=== PATIENT | female | born 1985 | race African-American/Black ===

== ENCOUNTER 2018-09-17 19:48 | Emergency (ER) | payer MEDICAID, OTHER ==
[~2018-09-17] VITALS: Ht 172.7 cm; Wt 77.1 kg
[~2018-09-17 19:48] MED LIST: CIPRO500 MG PO; IBUPROFEN600 MG ORAL; NKM; PHENERGAN25 M1 ORAL; ZOFRAN4 MG ORAL
--- NOTE | 2018-09-17 20:28 | Emergency Room Report ---
History of Present Illness General Chief Complaint: Flu Like Symptoms Source: Patient Present Illness HPI Patient is a 32-year-old female presented after increased headache and nasal congestion. Patient reports having onset of symptoms was 3 days prior to arrival. Patient reports having irregular menses. She reports having generalized body aches as well as the nonproductive cough. She denies any vomiting. She had not been having any diarrhea. She denies any photophobia or neck stiffness.She denies prior medical problems. Allergies: Coded Allergies: No Known Allergies (Unverified , 10/29/14) Patient History Past Medical History: see triage record Last Menstrual Period: 08/21/18 Now: No : 4 Para: 1 Reviewed Nursing Documentation: PMH: Agreed; PSxH: Agreed Nursing Documentation-PMH Past Medical History: No Stated History Review of Systems All Other Systems: negative except mentioned in HPI Physical Exam Vital Signs Date Time Temp Pulse Resp B/P (MAP) Pulse Ox O2 Delivery O2 Flow Rate FiO2 09/17/18 20:12 97.9 92 16 140/95 98 Room Air General Appearance: well appearing, no apparent distress, alert, GCS 15 Head: normocephalic, atraumatic ENT: hearing grossly normal, normal voice, other - nasal congestion Neck: full range of motion, supple Respiratory: no respiratory distress, speaking full sentences Cardiovascular #1: normal peripheral pulses, regular rate, rhythm, no edema Gastrointestinal: normal inspection Musculoskeletal: normal inspection, back normal, digits/nails normal, no calf tenderness Neurologic: normal inspection, alert, oriented x3, responsive, hand hardener III-XII nml as tested, normal gait Psychiatric: mood/affect normal Skin: normal inspection, no rash Medical Decision Making Diagnostic Impression: Primary Impression: Viral cephalgia Last Vital Signs Date Time Temp Pulse Resp B/P (MAP) Pulse Ox O2 Delivery O2 Flow Rate FiO2 09/17/18 20:12 97.9 92 16 140/95 98 Room Air Bakari Du MD Sep 17, 2018 20:28
[2018-09-17] MEDS ORDERED: Naproxen 500mg tab ORAL ONE (20:30)
[2018-09-17 20:55] LABS: APPEARANCE,URINE CLEAR; BILIRUBIN, URINE NEGATIVE (NEGATIVE); GLUCOSE, URINE (UA) NEGATIVE (NEGATIVE); KETONES,URINE 1+ (NEGATIVE); LEUKOCYTE ESTERASE ,URINE NEGATIVE (NEGATIVE); NITRITE,URINE NEGATIVE (NEGATIVE); PH,URINE 6 (4.5-8.0); PROTEIN,URINE 1+ (NEGATIVE); UROBILINOGEN,URINE NORMAL MG/DL (0.0-1.0)
[2018-09-17 20:58] LABS: COLOR,URINE YELLOW
[2018-09-17] MEDS ORDERED: NAPROXEN375 M2 ORAL (21:08)
[2018-09-17 21:57] VITALS: BP 140/95
[2018-09-17 21:59] VITALS: BP 140/95
== END 2018-09-17 22:02 | disposition home or self-care (01) ==
LOC: EMR 20:29
DX: R51 Headache (principal)
CPT/HCPCS: 81003; 81025; 99282